=== PATIENT | female | born 2000 | race Two or more races ===

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

== ENCOUNTER 2020-12-02 11:30 | Emergency (ER) | payer MEDICAID ==
[~2020-12-02] VITALS: Ht 162.6 cm; Wt 108.9 kg
[2020-12-02 13:13] VITALS: BP 126/71
== END 2020-12-02 14:16 | disposition home or self-care (01) ==
LOC: ER 11:30
DX: S93.402A Sprain of unspecified ligament of left ankle, initial encounter (principal); W18.39XA Other fall on same level, initial encounter; Y93.67 Activity, basketball; Y92.89 Other specified places as the place of occurrence of the external cause; Y99.8 Other external cause status
CPT/HCPCS: 73610

== ENCOUNTER 2022-05-05 14:25 | Emergency (ER) | payer MEDICAID ==
[~2022-05-05] VITALS: Ht 162.6 cm; Wt 110.0 kg
[~2022-05-05 14:25] MED LIST: ONDA-144 PO
[2022-05-05] MEDS ORDERED: LIDOCAINE VISCOUS 2% 15ML UD PO ONE (16:00)
[2022-05-05] MEDS ORDERED: ALUM & MAG HYDROX-SIMETH LIQ(MAALOX) 30 ML PO ONE (16:00)
[2022-05-05 16:29] LABS: Urine Amorphous Crystal FEW /hpf (None Seen); Urine Bacteria NONE SEEN /hpf (None Seen); Urine Blood Negative /uL (Negative); Urine Mucus FEW (None Seen); Urine Specific Gravity 1.022 (1.001-1.035); Urine WBC 11 /hpf (0 - 5)
[2022-05-05 16:35] LABS: Basophils # (auto) 0 10 ^3/uL (0-0.2); Basophils % (auto) 0.2 % (0.0-2.0); Eosinophils # (auto) 0 10 ^3/uL (0-0.8); Hematocrit 41.6 % (36.0-46.0); Hemoglobin 13.5 g/dL (12.2-16.2); Lymphocytes % (auto) 6.4 % (10.0-50.0); Mean Corpuscular Volume 75.8 fL (80.0-100.0); Monocytes # (auto) 0.2 10 ^3/uL (0-1.3); Red Blood Cells 5.49 10^6/uL (4.0-5.20)
[2022-05-05 16:37] LABS: Lymphocytes # (auto) 0.8 10 ^3/uL (0.4-5.4); Mean Corpuscular Hemoglobin 24.5 pg (28.0-32.0); Mean Corpuscular Hgb Conc. 32.3 g/dL (32.0-36.0); Monocytes % (auto) 1.7 % (0.0-12.0); Neutrophils # (auto) 12.1 10 ^3/uL (1.6-8.6); Neutrophils % (auto) 91.7 % (37.0-80.0); Nucleated Red Blood Cells % 0.1 %; Red Cell Distribution Width 14.6 % (11.8-14.3); White Blood Cell 13.2 10^3/uL (4.4-10.8)
[2022-05-05 16:57] LABS: BUN/Creatinine Ratio 9.1; Calcium 9.6 mg/dL (8.5-10.1); Potassium 4.3 mmol/L (3.5-5.1)
[2022-05-05 17:00] LABS: Bilirubin, Total 0.7 mg/dL (0.2-1.0); Total Protein 8.2 g/dL (6.4-8.2)
[2022-05-05] MEDS ORDERED: OMEP-263 PO (18:37)
[2022-05-05 21:45] VITALS: BP 158/98
== END 2022-05-05 21:53 | disposition home or self-care (01) ==
LOC: ER 14:35
DX: K27.9 Peptic ulcer, site unspecified, unspecified as acute or chronic, without hemorrhage or perforation (principal); K29.70 Gastritis, unspecified, without bleeding
CPT/HCPCS: 36415; 74176; 80053; 81001; 83690; 85025